=== PATIENT | female | born 1985 | race American Indian/Alaskan Native ===

== ENCOUNTER 2021-09-02 00:13 | Emergency (ER) | payer MEDICAID ==
[~2021-09-02] VITALS: Ht 162.6 cm; Wt 103.9 kg
[2021-09-02 01:29] LABS: Urine Bacteria FEW /hpf (None Seen); Urine Blood Negative /uL (Negative); Urine Specific Gravity 1.011 (1.001-1.035); Urine WBC 1 /hpf (0 - 5)
[2021-09-02 01:48] LABS: Basophils # (auto) 0.1 10 ^3/uL (0-0.2); Basophils % (auto) 0.7 % (0.0-2.0); Eosinophils # (auto) 0.3 10 ^3/uL (0-0.8); Eosinophils % (auto) 4.1 % (0.0-7.0); Hematocrit 37.4 % (36.0-46.0); Hemoglobin 12.7 g/dL (12.2-16.2); Lymphocytes # (auto) 2.2 10 ^3/uL (0.4-5.4); Lymphocytes % (auto) 25.9 % (10.0-50.0); Mean Corpuscular Hemoglobin 29.1 pg (28.0-32.0); Mean Corpuscular Hgb Conc. 33.9 g/dL (32.0-36.0); Mean Corpuscular Volume 85.7 fL (80.0-100.0); Monocytes # (auto) 0.5 10 ^3/uL (0-1.3); Monocytes % (auto) 6.4 % (0.0-12.0); Neutrophils # (auto) 5.3 10 ^3/uL (1.6-8.6); Neutrophils % (auto) 62.9 % (37.0-80.0); Nucleated Red Blood Cells % 0.1 %; Red Blood Cells 4.36 10^6/uL (4.0-5.20); Red Cell Distribution Width 13.8 % (11.8-14.3); White Blood Cell 8.4 10^3/uL (4.4-10.8)
[2021-09-02 06:00] VITALS: BP 125/78
[2021-09-02 06:53] LABS: Albumin 3.6 g/dL (3.4-5.0); Calcium 8.6 mg/dL (8.5-10.1); Potassium 3.9 mmol/L (3.5-5.1)
[2021-09-02 06:57] LABS: BUN/Creatinine Ratio 23.4; Bilirubin, Total 0.2 mg/dL (0.2-1.0); Total Protein 7.3 g/dL (6.4-8.2)
== END 2021-09-02 07:50 | disposition home or self-care (01) ==
LOC: ER 00:13
DX: R10.32 Left lower quadrant pain (principal); Z98.51 Tubal ligation status
CPT/HCPCS: 36415; 80053; 81001; 84702; 85025

== ENCOUNTER 2024-02-27 12:21 | Emergency (ER) | payer MEDICAID, OTHER ==
[~2024-02-27] VITALS: Ht 160 cm; Wt 110.4 kg
[~2024-02-27 12:21] MED LIST: TRAM50TA2 PO
[2024-02-27 14:32] VITALS: BP 142/82; PULSE 95; RESP 18; O2SAT 99
[2024-02-27] MEDS: KETOROLAC TROMETH 30 MG/ML 1ML VIAL IM ONE (14:55)
[2024-02-27] MEDS ORDERED: MELO7.5T7 PO (15:18)
[2024-02-27] MEDS ORDERED: CYCL-837 PO (15:18)
== END 2024-02-27 15:33 | disposition home or self-care (01) ==
LOC: ER 12:21
DX: R51.9 Headache, unspecified (principal); M54.2 Cervicalgia; Z79.899 Other long term (current) drug therapy; Z98.890 Other specified postprocedural states; V59.88XA Occupant (driver) (passenger) of pick-up truck or van injured in other specified transport accidents, initial encounter; Y93.I9 Activity, other involving external motion; Y92.488 Other paved roadways as the place of occurrence of the external cause; Y99.8 Other external cause status
CPT/HCPCS: 70450; 72040; 96372; 99285; J1885